=== PATIENT | male | born 1965 | race Caucasian/White ===

== ENCOUNTER 2020-08-14 06:09 | Day surgery (SDC) | payer OTHER ==
[2020-08-07 16:50] LABS: BASOPHILS % (AUTO) 0.5 % (0-1); EOSINOPHILS # (AUTO) 0.1 X10'3 (0-0.9); EOSINOPHILS % (AUTO) 2.5 % (0-6); LYMPHOCYTES # (AUTO) 1.2 X10'3 (1.1-4.8); MEAN CORPUSCULAR HGB CONC 34.5 g/dL (33.0-36.5); MEAN CORPUSCULAR VOLUME 92.7 FL (78-98); MEAN PLATELET VOLUME 8.9 FL (7.4-10.4); MONOCYTES # (AUTO) 0.6 X10'3 (0-0.9); MONOCYTES % (AUTO) 10.8 % (2-12); NEUTROPHILS # (AUTO) 3.9 X10'3 (1.8-7.7); NEUTROPHILS % (AUTO) 66.2 % (42-75); PRE OP HEMATOCRIT 43.1 % (42.0-52.0); PRE OP HEMOGLOBIN 14.9 g/dL (14.0-17.9); PRE OP PLATELET COUNT 175 X10'3 (140-440); RED BLOOD COUNT 4.65 X10'6 (4.70-6.10); RED CELL DISTRIBUTION WIDTH 13.3 % (11.5-14.5)
[2020-08-07 16:51] LABS: CLARITY,URINE CLEAR (Clear); COLOR,URINE YELLOW (Yellow); GLUCOSE, URINE NEGATIVE (Neg); KETONES,URINE TRACE mg/dl (Neg); LEUKOCYTE ESTERASE ,URINE NEGATIVE (Neg); NITRITES, URINE NEGATIVE (Neg); OCCULT BLOOD,URINE NEGATIVE (Neg); PH,URINE 5.5 (4.8-8.0); PROTEIN,URINE NEGATIVE (Neg)
[2020-08-07 16:53] LABS: UA COLLECTION TYPE CLN CATCH MIDSTREAM
[2020-08-07 16:54] LABS: PRE OP PARTIAL THROMB. TIME 26 SECONDS (22-32)
[2020-08-07 17:06] LABS: ALBUMIN 4.2 G/DL (3.4-5.0); ALBUMIN/GLOBULIN RATIO 1.2 (1.1-1.5); ALKALINE PHOSPHATASE 61 IU/L (46-116); BLOOD UREA NITROGEN 19 MG/DL (7-18); BUN/CREATININE RATIO 13.2 (5.4-32.0); CALCIUM 9.2 MG/DL (8.5-10.1); CHLORIDE 104 MMOL/L (99-107); CREATININE 1.44 MG/DL (0.60-1.10); PRE OP ANION GAP 11 (8-16); PRE OP AST 69 U/L (10-37); PRE OP BILIRUB, TOTAL 0.6 MG/DL (0.0-1.0); PRE OP GLUCOSE 92 MG/DL (70-104); PRE OP POTASSIUM 4.3 MMOL/L (3.4-5.1); PRE OP SODIUM 141 MMOL/L (135-145); TOTAL PROTEIN 7.8 G/DL (6.4-8.2); eGFR 51 ML/MIN
[2020-08-07 17:07] LABS: PRE OP ALT 129 U/L (30-65)
[~2020-08-14] VITALS: Ht 182.9 cm; Wt 127.0 kg
[~2020-08-14 06:09] MED LIST: CYCL-1 PO; MELO-100 PO; SERT100T10 PO; acetaminophen 325mg tablet PO ONE; ceFAZolin inj. 3,000 MG in normal saline 100ml IV soln 100 ML IV ONE; celeCOXIB 100mg capsule PO ONE; famotidine 20mg tablet PO ONE; gabapentin 300mg capsule PO ONE; metoclopramide 5 mg/ml inj IV ONE; oxyCODONE SR 10mg (sust. release) tab -2 tabs (20mg) PO ONE; ringers solution, lacted 1,000 ML IV SCH; tranexamic acid inj. 1,000 MG in normal saline 100 ML IV ONE; vancomycin 1,500 MG in NS 300ml IV soln IV ONE
[2020-08-14] MEDS ORDERED: vancomycin 1,000mg inj ONE (06:47)
[2020-08-14] MEDS ORDERED: bisacodyl 10mg suppository rectal RC PRN (06:50)
[2020-08-14] MEDS ORDERED: oxyCODONE/APAP 10/325mg tablet PO PRN ×2 (06:50)
[2020-08-14] MEDS ORDERED: potassium cl 20mEq in 1/2 NS 1,000 ML IV SCH (06:50)
[2020-08-14] MEDS ORDERED: HYDROmorphone inj. 0.5 MG/0.5 ML DISP.SYRIN IV PRN (06:50)
[2020-08-14] MEDS ORDERED: ondansetron/PF 4mg/2ml inj IV PRN (06:50)
[2020-08-14] MEDS ORDERED: magnesium hydroxide 30ml (MOM) UD suspension PO PRN (06:50)
[2020-08-14] MEDS ORDERED: HYDROmorphone 1 mg/ml syringe IV PRN (06:50)
[2020-08-14] MEDS ORDERED: diphenhydrAMINE 25mg capsule PO PRN ×2 (06:50)
[2020-08-14] MEDS ORDERED: tranexamic acid inj. 0 MG in normal saline 100ml IV soln 100 ML IV ONE (06:50)
[2020-08-14] MEDS ORDERED: acetaminophen 325mg tablet PO PRN (06:50)
--- NOTE | 2020-08-14 07:11 | NUR ---
PT HAS OPEN SORE ON OPERATIVE LEG. PT STATED DR DAUGHERTY SAW IT 2 DAYS AGO AND SAID IT WAS OK FOR SURGERY. PT PARTIALLY ADMITTED WHEN DR DAUGHERTY CAME IN AND SAID ABRASION LOOKED WORSE AND THAT SURGERY IS NOW CANCELED. PT DISCHARGED WILL RESCHEDULE. PT INSTRUCTED NOT TO DRIVE TODAY BECAUSE OF RECEIVING PREOP MEDS. AT BEDSIDE. HOME.
[2020-08-14] MEDS ORDERED: multivitamins, therapeutics tablet PO SCH (08:00)
[2020-08-14] MEDS ORDERED: non-formulary drug (Sertraline HCl 1.5 TAB) PO SCH (08:00)
[2020-08-14] MEDS ORDERED: ascorbic acid 500mg tablet PO SCH (08:00)
[2020-08-14] MEDS ORDERED: gabapentin 300mg capsule PO SCH (08:00)
[2020-08-14] MEDS ORDERED: aspirin 325mg tablet PO SCH (08:30)
[2020-08-14] MEDS ORDERED: ceFAZolin/D5W- 1GM premix 50 ML IV SCH (16:00)
[2020-08-14] MEDS ORDERED: cefazolin/dext.iso 2gm/100ml 100 ML IV SCH (16:00)
[2020-08-14] MEDS ORDERED: VANCOMYCIN 1,500MG inj. 1,500 MG in normal saline 500ml IV soln 500 ML IV SCH (20:00)
[2020-08-14] MEDS ORDERED: sennosides 8.6mg tablet PO SCH (21:00)
[2020-08-15] MEDS ORDERED: ROPIVAcaine inj 250 MG, ketorolac tromethamine inj. 15 MG, CloNIDine/PF inj 80 MCG, epi... IU ONE ×5 (06:20)
[2020-08-15] MEDS ORDERED: celeCOXIB 100mg capsule PO SCH (20:00)
== END 2020-08-14 07:15 | disposition home or self-care (01) ==
LOC: PAS 06:09
PROVIDERS: ATTEND Orthopaedic Surgery
DX: M17.0 Bilateral primary osteoarthritis of knee (principal); Z53.8 Procedure and treatment not carried out for other reasons; E66.9 Obesity, unspecified; Z68.39 Body mass index [BMI] 39.0-39.9, adult; G47.30 Sleep apnea, unspecified; F43.10 Post-traumatic stress disorder, unspecified; Z79.01 Long term (current) use of anticoagulants; Z20.828 Contact with and (suspected) exposure to other viral communicable diseases; Z90.49 Acquired absence of other specified parts of digestive tract; Z98.890 Other specified postprocedural states; Z79.899 Other long term (current) drug therapy
CPT/HCPCS: 36415; 80053; 81003; 85025; 85610; 85730; 86885; 86900; 86901; 87081; 87635; J0690; J2765; J3370; J7040; J7120

== ENCOUNTER 2020-09-18 10:01 | Day surgery (SDC) | payer OTHER ==
[2020-09-11 16:59] LABS: BASOPHILS # (AUTO) 0.1 X10'3 (0-0.2); BASOPHILS % (AUTO) 0.7 % (0-1); EOSINOPHILS # (AUTO) 0.2 X10'3 (0-0.9); EOSINOPHILS % (AUTO) 2.3 % (0-6); LYMPHOCYTES # (AUTO) 1.8 X10'3 (1.1-4.8); MEAN CORPUSCULAR HEMOGLOBIN 32.2 PG (27.0-31.0); MEAN CORPUSCULAR HGB CONC 34.2 g/dL (33.0-36.5); MEAN PLATELET VOLUME 9.2 FL (7.4-10.4); MONOCYTES # (AUTO) 0.7 X10'3 (0-0.9); MONOCYTES % (AUTO) 8.1 % (2-12); NEUTROPHILS # (AUTO) 5.7 X10'3 (1.8-7.7); NEUTROPHILS % (AUTO) 67.9 % (42-75); PRE OP HEMATOCRIT 44.9 % (42.0-52.0); PRE OP HEMOGLOBIN 15.4 g/dL (14.0-17.9); PRE OP PLATELET COUNT 195 X10'3 (140-440); RED BLOOD COUNT 4.78 X10'6 (4.70-6.10); RED CELL DISTRIBUTION WIDTH 13.7 % (11.5-14.5)
[2020-09-11 17:01] LABS: ALBUMIN 4.3 G/DL (3.4-5.0); ALBUMIN/GLOBULIN RATIO 1.1 (1.1-1.5); ALKALINE PHOSPHATASE 71 IU/L (46-116); BLOOD UREA NITROGEN 19 MG/DL (7-18); BUN/CREATININE RATIO 18.1 (5.4-32.0); CALCIUM 9.8 MG/DL (8.5-10.1); CHLORIDE 106 MMOL/L (99-107); CREATININE 1.05 MG/DL (0.60-1.10); PRE OP ANION GAP 8 (8-16); PRE OP AST 82 U/L (10-37); PRE OP BILIRUB, TOTAL 0.5 MG/DL (0.0-1.0); PRE OP GLUCOSE 83 MG/DL (70-104); PRE OP POTASSIUM 4.5 MMOL/L (3.4-5.1); PRE OP SODIUM 141 MMOL/L (135-145); TOTAL CARBON DIOXIDE 26.7 MMOL/L (24-32); TOTAL PROTEIN 8.1 G/DL (6.4-8.2); eGFR 74 ML/MIN
[2020-09-11 17:05] LABS: PRE OP ALT 166 U/L (30-65)
[~2020-09-18] VITALS: Ht 182.9 cm; Wt 130.1 kg
[2020-09-18] VITALS (22 sets, daily range): BP systolic 102–145; BP diastolic 66–88
[~2020-09-18 10:01] MED LIST changes: +HYDROmorphone 1 mg/ml syringe IV PRN; +HYDROmorphone inj. 0.5 MG/0.5 ML DISP.SYRIN IV PRN; +acetaminophen 325mg tablet PO PRN; +ascorbic acid 500mg tablet PO SCH; +aspirin 325mg tablet PO SCH; +bisacodyl 10mg suppository rectal RC PRN; +diphenhydrAMINE 25mg capsule PO PRN; +gabapentin 300mg capsule PO SCH; +magnesium hydroxide 30ml (MOM) UD suspension PO PRN; +multivitamins, therapeutics tablet PO SCH; +ondansetron/PF 4mg/2ml inj IV PRN; +oxyCODONE/APAP 10/325mg tablet PO PRN; +potassium cl 20mEq in 1/2 NS 1,000 ML IV SCH; +vancomycin 1,000mg inj ONE
[2020-09-18] MEDS ORDERED: ROPIVAcaine inj 250 MG, ketorolac tromethamine inj. 15 MG, CloNIDine/PF inj 80 MCG, epi... IU ONE ×5 (11:50)
[2020-09-18] MEDS ORDERED: MIDAZolam 5mg/5ml vial ONE (12:27)
[2020-09-18] MEDS ORDERED: fentaNYL/PF 50MCG/1 ML 2ML syringe ONE (12:27)
[2020-09-18] MEDS ORDERED: proCHLORperazine 10 MG/2 ml inj IV PRN (13:05)
[2020-09-18] MEDS ORDERED: morphine 2 MG/ML inj. syringe IV PRN (13:05)
[2020-09-18] MEDS ORDERED: morphine 4 MG/ML inj SYRINge IV PRN (13:05)
[2020-09-18] MEDS ORDERED: ROPIVAcaine 0.2% (10 MG/5 ML) BOLUS INJECTION ADDCANAL PRN (13:05)
[2020-09-18] MEDS ORDERED: ringers solution, lacted 1,000 ML IV SCH (13:05)
[2020-09-18] MEDS ORDERED: ROPIVAcaine 0.2%/PF PUMP/bolus 550 ML ADDCANAL SCH (13:05)
[2020-09-18] MEDS ORDERED: meperidine/PF 25mg/ml syringe IV PRN ×3 (13:05)
[2020-09-18] MEDS ORDERED: ondansetron/PF 4mg/2ml inj IV PRN (13:05)
[2020-09-18] MEDS ORDERED: ROPIVAcaine 0.5% (5mg/ml) 30ml vial ONE (14:06)
[2020-09-18] MEDS ORDERED: LIDOcaine 1%/PF 5ML 10 MG/ML VIAL ONE (14:06)
[2020-09-18] MEDS ORDERED: diphenhydrAMINE 50 mg/ml inj ONE (14:06)
[2020-09-18] MEDS ORDERED: propofol inj 20 ML IV ONE (14:06)
--- NOTE | 2020-09-18 14:20 | NUR ---
Received from OR via BED, accompanied by Anesthesiologist and report given by Anesthesiolgist. PATIENT A&OX4, DENIES PAIN, V/S WNL, NEUROVASCULAR CHECKS INTACT, SCD ON, 20G PIV LUE, KAYLEIGH DRESSING RIGHT KNEE WRAP POWDER PACK CDI W/ ONQ BALL AT 4ML/HR. SENSATIONS AT T11
--- NOTE | 2020-09-18 15:20 | NUR ---
PATIENT A&OX4, DENIES PAIN, V/S WNL, NEUROVASCULAR CHECKS INTACT, SCD ON, 20G PIV LUE, KAYLEIGH DRESSING RIGHT KNEE WRAP POWDER PACK CDI W/ ONQ BALL AT 4ML/HR. SENSATIONS AT T11. patient taken to [address] with all belongings and hooked up to monitors in room and report given to rn who has taken over patient care.
[2020-09-18] MEDS ORDERED: cefazolin/dext.iso 2gm/100ml 100 ML IV SCH (16:00)
[2020-09-18] MEDS ORDERED: ceFAZolin/D5W- 1GM premix 50 ML IV SCH (16:00)
[2020-09-18] MEDS ORDERED: tranexamic acid inj. 1,300 MG in normal saline 100ml IV soln 100 ML IV ONE (17:30)
[2020-09-18] MEDS: oxyCODONE/APAP 10/325mg tablet PO PRN (20:50)
[2020-09-18] MEDS ORDERED: sennosides 8.6mg tablet PO SCH ×2 (21:00)
[2020-09-18] MEDS: ceFAZolin/D5W- 1GM premix 50 ML IV SCH (21:25)
[2020-09-18] MEDS: potassium cl 20mEq in 1/2 NS 1,000 ML IV SCH ×2 (21:25→23:45)
[2020-09-18] MEDS: ascorbic acid 500mg tablet PO SCH (21:25)
[2020-09-18] MEDS: gabapentin 300mg capsule PO SCH (21:25)
[2020-09-18] MEDS ORDERED: vancomycin inj 2,000 MG in normal saline 500ml IV soln 500 ML IV ONE (23:00)
[2020-09-19] VITALS: BP 107/70
[2020-09-19 04:00] VITALS: BP 104/72
[2020-09-19] MEDS: ceFAZolin/D5W- 1GM premix 50 ML IV SCH (04:38)
[2020-09-19] MEDS: oxyCODONE/APAP 10/325mg tablet PO PRN (05:27)
[2020-09-19] MEDS: potassium cl 20mEq in 1/2 NS 1,000 ML IV SCH (05:28)
[2020-09-19 05:33] LABS: ANION GAP 7 (8-16); CHLORIDE 106 MMOL/L (99-107); POTASSIUM 4.2 MMOL/L (3.5-5.1); SODIUM 139 MMOL/L (135-145); TOTAL CARBON DIOXIDE 26.2 MMOL/L (24-32)
--- NOTE | 2020-09-19 06:45 | NUR ---
Problems reprioritized. Patient report given, questions answered & plan of care reviewed with Patricia FRANKLIN.
[2020-09-19] MEDS ORDERED: ASPI-1 PO (07:55)
[2020-09-19 08:00] VITALS: BP 116/72
[2020-09-19] MEDS ORDERED: sertraline 50mg tablet PO SCH (08:00)
[2020-09-19] MEDS ORDERED: multivitamins, therapeutics tablet PO SCH (08:00)
[2020-09-19] MEDS ORDERED: aspirin 325mg tablet PO SCH (08:30)
[2020-09-19] MEDS: ascorbic acid 500mg tablet PO SCH (08:36)
[2020-09-19] MEDS: gabapentin 300mg capsule PO SCH (08:37)
[2020-09-19 08:59] LABS: BASOPHILS % (AUTO) 0.5 % (0-1); EOSINOPHILS # (AUTO) 0.2 X10'3 (0-0.9); EOSINOPHILS % (AUTO) 2.8 % (0-6); HEMATOCRIT 35.6 % (42.0-52.0); HEMOGLOBIN 12.2 g/dl (14.0-17.9); LYMPHOCYTES # (AUTO) 1.2 X10'3 (1.1-4.8); LYMPHOCYTES % (AUTO) 18.5 % (21-51); MEAN CORPUSCULAR HEMOGLOBIN 31.8 PG (27.0-31.0); MEAN CORPUSCULAR HGB CONC 34.2 g/dL (33.0-36.5); MEAN CORPUSCULAR VOLUME 92.9 FL (78-98); MONOCYTES # (AUTO) 0.6 X10'3 (0-0.9); MONOCYTES % (AUTO) 9.3 % (2-12); NEUTROPHILS # (AUTO) 4.5 X10'3 (1.8-7.7); NEUTROPHILS % (AUTO) 68.9 % (42-75); PLATELET COUNT 137 X10'3 (140-440); RED BLOOD COUNT 3.83 X10'6 (4.70-6.10); RED CELL DISTRIBUTION WIDTH 13.7 % (11.5-14.5); WHITE BLOOD COUNT 6.5 X10'3 (4.5-11.0)
[2020-09-19] MEDS ORDERED: ROPIVAcaine inj 250 MG, ketorolac tromethamine inj. 15 MG, CloNIDine/PF inj 80 MCG, epi... IU ONE ×5 (11:40)
[2020-09-19] MEDS ORDERED: celeCOXIB 100mg capsule PO SCH (20:00)
== END 2020-09-19 09:41 | disposition home or self-care (01) ==
LOC: PAS 10:01 → UNDOADMOB 15:28 → SUR 3N 15:28 → UNDODISOB 09-19 09:41 → PAS 09-19 09:41
PROVIDERS: ATTEND Orthopaedic Surgery
DX: M17.11 Unilateral primary osteoarthritis, right knee (principal); M21.161 Varus deformity, not elsewhere classified, right knee; G43.909 Migraine, unspecified, not intractable, without status migrainosus; F32.9 Major depressive disorder, single episode, unspecified; F43.10 Post-traumatic stress disorder, unspecified; G47.33 Obstructive sleep apnea (adult) (pediatric); E66.9 Obesity, unspecified; Z68.38 Body mass index [BMI] 38.0-38.9, adult; G89.18 Other acute postprocedural pain; Z20.828 Contact with and (suspected) exposure to other viral communicable diseases; Z79.899 Other long term (current) drug therapy; Z98.890 Other specified postprocedural states; Z72.89 Other problems related to lifestyle; Z90.49 Acquired absence of other specified parts of digestive tract; Z87.19 Personal history of other diseases of the digestive system
CPT/HCPCS: 27447; 36415; 64448; 73560; 76937; 80051; 80053; 82948; 85025; 86885; 86900; 86901; 87081; 87635; 97110; 97116; 97161; 97530; A6454; C1713; C1776; J0690; J1200; J2250; J2704; J2765; J2795; J3010; J3370; J7040; J7120; A4215; A7000; J3480